=== PATIENT | female | born 1995 | race Caucasian/White ===

== ENCOUNTER → 2019-05-28 16:05 | Outpatient (BNVA) | payer OTHER, BC, MEDICAID, SELFPAY | PROVIDERS: Family Provider Physician Assistant Medical; PCP Physician Assistant Medical; Visit Provider Obstetrics & Gynecology | DX: N64.3 Galactorrhea not associated with childbirth (principal); Z30.41 Encounter for surveillance of contraceptive pills | CPT/HCPCS: 84146; 84443 ==

== ENCOUNTER → 2019-11-02 14:00 | Outpatient (BNVA) | payer MEDICAID, SELFPAY | PROVIDERS: Family Provider Physician Assistant Medical; PCP Physician Assistant Medical; Visit Provider Obstetrics & Gynecology | DX: Z32.01 Encounter for pregnancy test, result positive (principal) | CPT/HCPCS: 81025 ==

== ENCOUNTER 2019-11-20 22:59 | Emergency (ER) | payer BC, MEDICAID, SELFPAY ==
--- NOTE | 2019-11-20 23:01 | USR_ITS ---
PROCEDURE INFORMATION: Exam: US First Trimester, Transabdominal and US , Transvaginal Exam date and time: 11/21/2019 12:48 AM Age: 24 years old Clinical indication: Lmp or gestational age (in weeks): 5wk4d; Other: Spotting; Patient HX: ; Additional info: Threatened miscarriage. LMP 10/02/2019. TECHNIQUE: Imaging protocol: Real-time transabdominal obstetrical ultrasound of the maternal pelvis and a first trimester , less than 14 weeks 0 days, with image documentation. Transvaginal imaging was used for better evaluation of the fetus and adnexa. COMPARISON: No relevant prior studies available. FINDINGS: There is a 9 x 7 x 8 mm fluid collection within the uterus that may represent a very early gestational sac. No definite yolk sac visible to confirm that this is a true gestational sac. Size would suggest gestational age of approximately 5 weeks. No significant subchorionic hematoma visualized. Small amount fluid in the cervical canal, about 2 mm in thickness. Trace amount of cul-de-sac fluid. Maternal ovaries/adnexa appear essentially unremarkable. Blood flow detected in each ovary. The sonographic appearance alone is nonspecific. This may represent an early viable intrauterine , approximately five weeks gestation. If there is any further question of viability, follow up will be needed. An occult ectopic with a pseudo sac in the uterus is not yet completely excluded. Appropriate clinical follow up is needed. The urinary bladder was not completely evaluated/imaged at this time. Endovaginal scanning provided better visualization/evaluation of the suspected gestational sac and contents, as discussed above. US/US OB <= 14 weeks fetus [id number] IMPRESSION: 1. Probable early early gestational sac within the uterus. 2. See above discussion and recommendations. 3. Essentially unremarkable ovaries/adnexa. 4. Trace amount of cul-de-sac fluid. 5. Other details discussed above.
[2019-11-20 23:20] LABS: Basophils # 0.1 10^3/uL (0.0-0.1); Basophils % 0.9 %; Eosinophils # 0.5 10^3/uL (0.0-0.8); Eosinophils % 5.3 %; Hematocrit 44.3 % (37.0-47.0); Hemoglobin 13.9 g/dL (11.5-15.3); Lymphocytes # 2.4 10^3/uL (0.8-4.8); Lymphocytes % 27.8 %; Mean Corpuscular HGB Conc 31.4 g/dL (30.0-36.0); Mean Corpuscular Volume 89.3 fL (81-99); Mean Platelet Volume 10.1 fL (7.4-10.4); Monocytes # 0.6 10^3/uL (0.2-0.9); Monocytes % 7.2 %; Neutrophils # 5.13 10^3/uL (1.8-7.7); Neutrophils % 58.6 %; Nucleated Red Blood Cells % 0 %; Platelet Count 348 10^3/cmm (130-400); Red Blood Count 4.96 10^6/uL (4.1-5.3); Red Cell Distribution Width 12.9 % (12.1-15.1); White Blood Count 8.8 10^3/uL (4.0-10.0)
[2019-11-20 23:31] VITALS: BP 148/94; PULSE 105; RESP 18; TEMP 36.7; O2SAT 100; BMI 28.3
[2019-11-21 00:09] LABS: Bilirubin Urine Neg (NEGATIVE); Blood Urine Neg (Negative); Glucose Urine UA Norm (Normal); Ketones Urine Negative (Negative); Leukocyte Esterase Urine Negative (Negative); Nitrate Urine Negative (Negative); Protein Urine Neg (Negative); Urine Appearance Clear (CLEAR); Urine Color Yellow (Yellow); Urobilinogen Urine Norm (Negative); pH Urine 6 (5-7)
[2019-11-21 00:10] LABS: RBC Urine 0-4 /hpf (0-2); WBC Urine 0-4 /hpf (0-5)
[2019-11-21 00:11] LABS: Add Urine Culture? No; Bacteria Urine TRACE; Mucus Urine TRACE
--- NOTE | 2019-11-21 00:59 | W.ED.PREGNAN ---
HPI - General: Chief complaint: Vaginal Bleeding Stated complaint: 7 weeks preg/bleeding Time Seen by Provider: 11/21/19 00:56 History of Present Illness: HPI Narrative: Patient states when she wiped tonight that she had some blood on the tissue. Did have little bit discharge couple weeks ago that any problems. Otherwise and she is not have any current bleeding right now Complaint: vaginal bleeding Onset (ago): hour(s) Pain Consistency: now resolved Severity: mild Date of Last Menstrual Period: 10/02/19 Patient : Yes Number of Weeks : 4-5 OB History - Current : no complications OB History - Previous Pregnancies: no complications care: none Associated symptoms: Reports no associated symptoms; Deny abdominal pain, headache(s), nausea or vomiting Review of Systems Const: Denies: fever(s), chills or body aches Eyes: Denies: change in vision or blurry vision ENMT: Denies: throat pain or nasal congestion Card: Denies: chest pain or dyspnea on exertion Resp: Denies: dyspnea, productive cough or non-productive cough GI: Denies: abdominal pain, nausea or vomiting : Reports: vaginal bleeding Musc: Denies: extremity pain Skin/Breast: Denies: rash Neuro: Denies: headache(s) Psych: Denies: anxiety or depression Garth/Lymph: Denies: easy bruising PFSH ED PFSH: Medical History (Updated 06/01/19 @ 19:10 by Serge Nash MD) Patient denies medical problems Surgical History (Updated 06/01/19 @ 19:05 by Serge Nash MD) History of laparoscopy (05/14/16) Laparoscopic left ovarian cystectomy. Dx: Pelvic pain, Left ovarian cyst. Performed by Dr. Nash at [facility] in [place], [place]. No evidence of endometriosis seen. History of wisdom tooth extraction Hx of tonsillectomy (~2002) at age 7 Family History (Updated 06/01/19 @ 19:06 by Serge Nash MD) Mother Hypertension Grandmother Diabetes Paternal Breast cancer maternal Grandfather Heart disease maternal Family/Other Breast cancer Maternal aunt, maternal cousins Social History Smoking and tobacco status: never smoked Alcohol intake: never Female Reproductive History: Date of last menstrual period: 10/02/19 Physical Exam Const: COMMON NORMALS: no acute distress, average body habitus and patient oriented x3 HENMT: COMMON NORMALS: normocephalic HEAD & SCALP: normal to inspection and normocephalic FACE & SINUS: normal facial exam Eye: COMMON NORMALS: conjunctivae normal GENERAL EYE: appearance normal, both eyes and all related structures CONJUNCTIVA: Yes conjunctivae normal Neck/C-Spine: COMMON NORMALS: no JVD Chest: COMMONS NORMALS: normal inspection of the chest Resp: COMMON NORMALS: normal respiratory effort and clear to auscultation bilaterally AUSCULTATION: clear to auscultation bilaterally Cardio: COMMON NORMALS: no JVD, regular rate and regular rhythm RATE: regular rate RHYTHM: regular rhythm GI: COMMON NORMALS: Normal to inspection, nondistended, normoactive bowel sounds present Extremity: COMMON NORMALS: normal to inspection and full ROM Neuro: COMMON NORMALS: patient oriented x3 Procedures Perimortem Number of Weeks : 4-5 Course Vital Signs: Vital signs: Vital Signs Temperature 98.0 F 11/20/19 23:31 Pulse Rate 105 H 11/20/19 23:31 Respiratory Rate 18 11/20/19 23:31 Blood Pressure 148/94 11/20/19 23:31 Pulse Oximetry 100 11/20/19 23:31 MDM - OB/Uterine Contractions Lab Data: Labs: Lab Results 11/20/19 11/20/19 11/20/19 Range/Units 23:05 23:05 23:05 WBC 8.8 (4.0-10.0) 10^3/ uL RBC 4.96 (4.1-5.3) 10^6/u L Hgb 13.9 (11.5-15.3) g/dL Hct 44.3 (37.0-47.0) % MCV 89.3 (81-99) fL MCH 28.0 (28.0-34.0) pg MCHC 31.4 (30.0-36.0) g/dL RDW 12.9 (12.1-15.1) % Plt Count 348 (130-400) 10^3/c mm MPV 10.1 (7.4-10.4) fL Neut % (Auto) 58.6 % Lymph % (Auto) 27.8 % [place] % (Auto) 7.2 % Eos % (Auto) 5.3 % Baso % (Auto) 0.9 % Neut # (Auto) 5.13 (1.8-7.7) 10^3/u L Lymph # (Auto) 2.4 (0.8-4.8) 10^3/u L [place] # (Auto) 0.6 (0.2-0.9) 10^3/u L Eos # (Auto) 0.5 (0.0-0.8) 10^3/u L Baso # (Auto) 0.1 (0.0-0.1) 10^3/u L Nucleated RBC % (a uto) 0 % Nucleated RBCs # 0.0 /100WBC Ser , Jcarlos i-Qnt 2961.00 mIU/mL Urine Color (Yellow) Urine Appearance (CLEAR) Urine pH (5-7) Ur Specific Gravit y (1.005-1.030) Urine Protein (Negative) Urine Glucose (UA) (Normal) Urine Ketones (Negative) Urine Blood (Negative) Urine Nitrate (Negative) Urine Bilirubin (NEGATIVE) Urine Urobilinogen (Negative) mg/dL Ur Leukocyte Drea ase (Negative) Urine RBC (0-2) /hpf Urine WBC (0-5) /hpf Ur Squamous Epith Cells (0-5) Amorphous Sediment Urine Bacteria (NONE) Urine Mucus Blood Type A Positive Rho(D) Type Positive 11/20/19 Range/Units 23:35 WBC (4.0-10.0) 10^3/ uL RBC (4.1-5.3) 10^6/u L Hgb (11.5-15.3) g/dL Hct (37.0-47.0) % MCV (81-99) fL MCH (28.0-34.0) pg MCHC (30.0-36.0) g/dL RDW (12.1-15.1) % Plt Count (130-400) 10^3/c mm MPV (7.4-10.4) fL Neut % (Auto) % Lymph % (Auto) % [place] % (Auto) % Eos % (Auto) % Baso % (Auto) % Neut # (Auto) (1.8-7.7) 10^3/u L Lymph # (Auto) (0.8-4.8) 10^3/u L [place] # (Auto) (0.2-0.9) 10^3/u L Eos # (Auto) (0.0-0.8) 10^3/u L Baso # (Auto) (0.0-0.1) 10^3/u L Nucleated RBC % (a uto) % Nucleated RBCs # /100WBC Ser , Jcarlos i-Qnt mIU/mL Urine Color Yellow (Yellow) Urine Appearance Clear (CLEAR) Urine pH 6 (5-7) Ur Specific Gravit y 1.010 (1.005-1.030) Urine Protein Neg (Negative) Urine Glucose (UA) Norm (Normal) Urine Ketones Negative (Negative) Urine Blood Neg (Negative) Urine Nitrate Negative (Negative) Urine Bilirubin Neg (NEGATIVE) Urine Urobilinogen Norm (Negative) mg/dL Ur Leukocyte Drea ase Negative (Negative) Urine RBC 0-4 H (0-2) /hpf Urine WBC 0-4 H (0-5) /hpf Ur Squamous Epith Cells 10-15 H (0-5) Amorphous Sediment Not Reportable Urine Bacteria Trace (NONE) Urine Mucus Trace Blood Type Rho(D) Type Discharge Plan Discharge Prescriptions: No Action norethindrone-e.estradiol-iron [Junel FE 1.5/30 (28)] 1.5 mg-30 mcg (21)/75 mg (7) tablet 1 tab PO DAILY Qty: 28 RF: 12 Coding Level of Care Code ED Tanner Rotary Drum Continuous Process for g Benjamin
[2019-11-21 02:06] VITALS: BP 138/91; PULSE 82; RESP 18; O2SAT 97
== END 2019-11-21 02:07 | disposition home or self-care (01) ==
PROVIDERS: Emergency Medicine; Emergency Provider Nurse Practitioner Family; PCP Physician Assistant Medical
DX: N93.9 Abnormal uterine and vaginal bleeding, unspecified (principal)
CPT/HCPCS: 12345; 36415; 76801; 81001; 84702; 85025; 86900; 99282; 99283

== ENCOUNTER 2019-11-23 12:49 | Outpatient (CLI) | payer BC, MEDICAID, SELFPAY | END 2019-11-23 12:50 | disposition home or self-care (01) | LOC: LAB 12:56 | PROVIDERS: PCP Physician Assistant Medical; Visit Provider Obstetrics & Gynecology | DX: O20.9 Hemorrhage in early pregnancy, unspecified (principal) | CPT/HCPCS: 84702 ==

== ENCOUNTER 2019-11-24 18:31 | Emergency (ER) | payer BC, MEDICAID, SELFPAY ==
[2019-11-24 18:46] VITALS: BP 144/96; PULSE 96; RESP 14; TEMP 36.8; O2SAT 100; BMI 28.3
--- NOTE | 2019-11-24 19:19 | US_ITS ---
WS: [id number] ULTRASOUND EARLY TECHNIQUE: Transabdominal sonography of the pelvis was performed. Followed by transvaginal sonography to better evaluate the uterus and ovaries. CLINICAL INFORMATION: Pain Beta hCG: Unknown. COMPARISON: November 21, 2019 FINDINGS: UTERUS AND GESTATIONAL SAC Intrauterine gestations: Empty gestational sac with measurements compatible with 5 weeks 6 days. No pole or yolk sac. Re commend short interval follow-up in this very early . Subchorionic hemorrhage: Small subchorionic hemorrhage measuring 8 x 4 mm. OVARIES Right ovary: Normal. Left ovary: Normal. FREE FLUID None. US/US transvaginal [id number] IMPRESSION: 1. Gestational sac. No visualized pole in this very early . Rec ommend short interval follow-up. 2. Normal ovaries. 3. Small amount of subchorionic hemorrhage
--- NOTE | 2019-11-24 19:30 | ED_ITS ---
HPI - Female Genitourinary General: Chief complaint: Vaginal Bleeding Stated complaint: preg/bleeding Time Seen by Provider: 11/24/19 19:08 Source: patient Mode of arrival: ambulatory Limitations: no limitations History of Present Illness: HPI Narrative: Ghazala is a nice 24-year-old female who comes in complaining of vaginal bleeding and cramping. The patient states that she is currently up 5 to 6 weeks with her second . She did have an ultrasound recently that showed a 5-week with a gestational sac. She is had bleeding going on now for the past 5 days but it is become increasingly heavier. She is had intermittent lower abdominal cramping that is in the midline. She denies any vaginal discharge other than the blood. She denies any urinary symptoms. She is not described any fever, chills, nausea, any vomiting or any bowel problems. She states sometimes resting will make the bleeding slowed down but any type of activity makes it worse. Associated symptoms: Reports abdominal pain (Suprapubic, see HPI); Deny headache(s), nausea, syncope or vaginal discharge Date of Last Menstrual Period: 10/02/19 Review of Systems Const: Denies: fever(s), chills, body aches, fatigue, malaise or diaphoresis Eyes: Denies: change in vision, blurry vision, photophobia, eye discomfort, eye discharge or eye redness ENMT: Denies: throat pain, odynophagia, hoarseness, swelling of lips/tongue, ear or mastoid pain, ear discharge, change in hearing or nasal discharge Card: Denies: chest pain, palpitations, irregular heart rhythm, edema, lightheadedness, syncope, pre-syncope, dyspnea on exertion or orthopnea Resp: Denies: dyspnea, productive cough, non-productive cough, wheezing, hemoptysis or chest congestion GI: Reports: abdominal pain (Suprapubic, see HPI); Denies: nausea, vomiting, hematemesis, coffee ground emesis, heartburn, diar dago, constipation, GI cramping, hematochezia or melena : Reports: vaginal bleeding; Denies: flank pain, dysuria, urinary frequency, urinary urgency, hematuria or vaginal discharge Musc: Denies: neck pain, back pain, extremity pain, extremity swelling, joint pain, joint swelling, joint redness, joint warmth or joint stiffness Skin/Breast: Denies: rash, pruritus, erythema or skin tenderness Neuro: Denies: headache(s), numbness in extremities, weakness in extremities, sensory changes, lack of coordination, difficulty walking, dizziness, vertigo, confusion, Slurred speech present or seizure-like activity Garth/Lymph: Denies: easy bruising, easy bleeding, petechiae, purpura or enlarged lymph nodes All/Imm: Denies: urticaria, throat swelling, tongue swelling, facial swelling or acute wheezing PFSH ED PFSH: Medical History Patient denies medical problems Surgical History History of laparoscopy (05/14/16) Laparoscopic left ovarian cystectomy. Dx: Pelvic pain, Left ovarian cyst. [place]. Nash [place] [facility] [place]. No evidence of endometriosis seen. History of wisdom tooth extraction Hx of tonsillectomy (~2002) at age 7 Family History Mother Hypertension Grandmother Diabetes Paternal Breast cancer maternal Grandfather Heart disease maternal Family/Other Breast cancer Maternal aunt, maternal cousins Social History Smoking and tobacco status: never smoked Alcohol intake: never Female Reproductive History: Date of last menstrual period: 10/02/19 Physical Exam Const: COMMON NORMALS: no acute distress, patient oriented x3, no limitations, healthy appearing and well nourished GENERAL APPEARANCE: cooperative, well kempt and well developed HENMT: COMMON NORMALS: normocephalic, atraumatic, external ears normal, EAC's normal and Normal external nose present HEAD & SCALP: normal to inspection, normocephalic and atraumatic FACE & SINUS: normal facial exam and face symmetric NOSE: Normal external nose present and Normal nares present EXTERNAL EAR: Yes external ears normal EXTERNAL AUDITORY CANAL: EAC's normal MOUTH: Normal oral and palatal mucosa present, lip normal and tongue normal Eye: COMMON NORMALS: Equal, round and reactive pupils present and conjunctivae normal GENERAL EYE: appearance normal, both eyes and all related structures ALIGNMENT: Yes alignment normal PERIORBITAL: periorbital findings normal EYELID: eyelids normal CONJUNCTIVA: Yes conjunctivae normal SCLERA: sclerae normal PUPIL: Yes Equal, round and reactive pupils present Neck/C-Spine: COMMON NORMALS: full ROM, no lymphadenopathy, supple, no meningeal signs and no JVD GENERAL: Yes normal visual inspection and Yes trachea midline Chest: COMMONS NORMALS: normal inspection of the chest and normal palpation of entire chest wall Resp: COMMON NORMALS: normal respiratory effort, No retractions, No use of accessory muscles and clear to auscultation bilaterally EFFORT & INSPECTION: Yes able to speak in complete sentences and Yes symmetric chest movement AUSCULTATION: clear to auscultation bilaterally, no crackles, no rales, no rhonchi and no wheezes Cardio: COMMON NORMALS: no JVD, regular rate, regular rhythm, S1 normal heart sound present and S2 normal heart sound present RATE: regular rate RHYTHM: regular rhythm HEART SOUNDS: S1 normal heart sound present, S2 normal heart sound present, no click, no gallops, no murmurs, no rubs and abnormal split S2 GI: COMMON NORMALS: Soft to palpation and No hepatosplenomegaly present PALPATION: Yes Soft to palpation, No Tenderness to palpation present (GI), No Guarding due to palpation present (GI), No Rigid due to palpation, Yes No hepatosplenomegaly present, No Hernia present, No Palpable mass present and No Pulsatile mass present : COMMON NORMALS: Yes no CVA tenderness BLADDER/KIDNEY EXAM: Yes no CVA tenderness EXTERNAL FEMALE EXAM: No Hernia present Back/Pelvis: COMMON NORMALS: no CVA tenderness, thoracic and lumbar spine normal to inspection, no thoracic nor lumbar tenderness and thoraco-lumbar ROM normal Extremity: COMMON NORMALS: normal to inspection, full ROM, capillary refill normal, no joint enlargement, no clubbing, cyanosis or edema and no calf tenderness Neuro: COMMON NORMALS: patient oriented x3, CN's II-XII intact bilaterally, moves all extremities, no focal motor deficits and no sensory deficits noted MENINGEAL SIGNS: Yes no meningeal signs SPEECH: speech normal Psych: COMMON NORMALS: mental status grossly normal, Normal thought process present, cooperative, normal affect, speech normal and activity/motor behavior normal APPEARANCE: Yes well kempt SPEECH: Yes normal speech THOUGHT PROCESS: Normal thought process present Skin: COMMON NORMALS: no rashes or lesions noted, turgor normal, no jaundice, no petechiae and no mottling GENERAL SKIN EXAM: no rashes or lesions noted and turgor normal Course Vital Signs: Vital signs: Vital Signs Temperature 98.3 F 11/24/19 18:46 Pulse Rate 96 11/24/19 18:46 Respiratory Rate 16 11/24/19 21:53 Blood Pressure 127/82 11/24/19 21:53 Pulse Oximetry 100 11/24/19 18:46 MDM - Female MDM Narrative: Medical decision making narrative: Ghazala is a nice 24-year-old female who comes in complaining of vaginal bleeding. She believes herself to be about 5 weeks by dates. This would be her second . Ultrasound reveals what looks to be a blighted ovum and a incomplete as her cervix is dilating. The patient is aware of this and understands she will need to follow-up with Dr. Nash or Martin. I have reviewed the case with Dr. Hopkins and he agrees to see the patient in follow-up. Patient understands it is imperative that she follow-up this week and Dr. Salazar has agreed that she needs to be seen this week to ensure that she passes all of the products of conception. Lab Data: Attestation: I reviewed the patient's lab results. Labs: Lab Results 11/24/19 11/24/19 11/24/19 Range/Units 19:45 19:50 19:50 WBC 10.8 H (4.0-10.0) 10^3/ uL RBC 4.45 (4.1-5.3) 10^6/u L Hgb 12.9 (11.5-15.3) g/dL Hct 39.8 (37.0-47.0) % MCV 89.4 (81-99) fL MCH 29.0 (28.0-34.0) pg MCHC 32.4 (30.0-36.0) g/dL RDW 12.9 (12.1-15.1) % Plt Count 337 (130-400) 10^3/c mm MPV 10.1 (7.4-10.4) fL Neut % (Auto) 56.9 % Lymph % (Auto) 27.3 % [place] % (Auto) 7.9 % Eos % (Auto) 6.6 % Baso % (Auto) 1.0 % Neut # (Auto) 6.12 (1.8-7.7) 10^3/u L Lymph # (Auto) 2.9 (0.8-4.8) 10^3/u L [place] # (Auto) 0.9 (0.2-0.9) 10^3/u L Eos # (Auto) 0.7 (0.0-0.8) 10^3/u L Baso # (Auto) 0.1 (0.0-0.1) 10^3/u L Nucleated RBC % (a uto) 0 % Nucleated RBCs # 0.0 /100WBC Sodium 139 (136-145) mmol/L Potassium 3.5 (3.5-5.1) mmol/L Chloride 105 (98-107) mmol/L Carbon Dioxide 25 (22-29) mmol/L Anion Gap 12.5 (5-19) BUN 7 (6-20) mg/dL Creatinine 0.7 (0.5-0.9) mg/dL GFR Calculation 101.1 (90-130) mL/min Glucose 97 (65-115) mg/dL Calculated Osmolal ity 284 L (285-295) mOsm/k g Calcium 9.2 (8.5-10.5) mg/dL Total Bilirubin 0.2 (0.15-1.2) mg/dL AST 11 (0-32) U/L ALT 14 (0-33) U/L Alkaline Phosphata se 66 (35-105) IU/L Total Protein 6.5 L (6.6-8.7) g/dL Albumin 4.5 (3.5-5.2) g/dL Globulin 2.0 (1.3-4.6) g/dL Ser , Jcarlos i-Qnt 3582.00 mIU/mL Urine Color (Yellow) Urine Appearance (CLEAR) Urine pH (5-7) Ur Specific Gravit y (1.005-1.030) Urine Protein (Negative) Urine Glucose (UA) (Normal) Urine Ketones (Negative) Urine Blood (Negative) Urine Nitrate (Negative) Urine Bilirubin (NEGATIVE) Urine Urobilinogen (Negative) mg/dL Ur Leukocyte Drea ase (Negative) Urine RBC (0-2) /hpf Urine WBC (0-5) /hpf Ur Squamous Epith Cells (0-5) Amorphous Sediment Urine Bacteria (NONE) Blood Type A Positive Rho(D) Type Positive 11/24/19 Range/Units 20:00 WBC (4.0-10.0) 10^3/ uL RBC (4.1-5.3) 10^6/u L Hgb (11.5-15.3) g/dL Hct (37.0-47.0) % MCV (81-99) fL MCH (28.0-34.0) pg MCHC (30.0-36.0) g/dL RDW (12.1-15.1) % Plt Count (130-400) 10^3/c mm MPV (7.4-10.4) fL Neut % (Auto) % Lymph % (Auto) % [place] % (Auto) % Eos % (Auto) % Baso % (Auto) % Neut # (Auto) (1.8-7.7) 10^3/u L Lymph # (Auto) (0.8-4.8) 10^3/u L [place] # (Auto) (0.2-0.9) 10^3/u L Eos # (Auto) (0.0-0.8) 10^3/u L Baso # (Auto) (0.0-0.1) 10^3/u L Nucleated RBC % (a uto) % Nucleated RBCs # /100WBC Sodium (136-145) mmol/L Potassium (3.5-5.1) mmol/L Chloride (98-107) mmol/L Carbon Dioxide (22-29) mmol/L Anion Gap (5-19) BUN (6-20) mg/dL Creatinine (0.5-0.9) mg/dL GFR Calculation (90-130) mL/min Glucose (65-115) mg/dL Calculated Osmolal ity (285-295) mOsm/k g Calcium (8.5-10.5) mg/dL Total Bilirubin (0.15-1.2) mg/dL AST (0-32) U/L ALT (0-33) U/L Alkaline Phosphata se (35-105) IU/L Total Protein (6.6-8.7) g/dL Albumin (3.5-5.2) g/dL Globulin (1.3-4.6) g/dL Ser , Jcarlos i-Qnt mIU/mL Urine Color Yellow (Yellow) Urine Appearance Clear (CLEAR) Urine pH 6 (5-7) Ur Specific Gravit y 1.015 (1.005-1.030) Urine Protein Neg (Negative) Urine Glucose (UA) Norm (Normal) Urine Ketones Negative (Negative) Urine Blood 3+ H (Negative) Urine Nitrate Negative (Negative) Urine Bilirubin Neg (NEGATIVE) Urine Urobilinogen Norm (Negative) mg/dL Ur Leukocyte Drea ase Negative (Negative) Urine RBC 25-40 H (0-2) /hpf Urine WBC None (0-5) /hpf Ur Squamous Epith Cells 0-4 H (0-5) Amorphous Sediment Not Reportable Urine Bacteria Trace (NONE) Blood Type Rho(D) Type Imaging Data: US: My impression: Ultrasound pelvis, technologist interpretation -empty sac present measuring 5 weeks and 1 day. No pole or yolk sac seen. Appears as though it is a blighted ovum. Ovaries normal. Cervix is dilating open. No free flui d. Discharge Plan Discharge Patient Disposition: Home Clinical Impression: Incomplete UTI (urinary tract infection) Qualifiers: Urinary tract infection type: site unspecified Hematuria presence: with hematuria Qualified Code(s): N39.0 - Urinary tract infection, site not specified Condition: Stable Prescriptions: New cefdinir 300 mg capsule 300 mg PO Q12H 10 Days Qty: 20 RF: 0 No Action 28-800 mg-mcg Tablet 1 tab PO DAILY RF: 0 Discharge Orders: Discharge Order (Routine); Ordered 11/24/19 Ordered By: Gia Carias Referrals: Farshad Klein [Primary Care Provider] - 1-3 days Discharge Diet: Advance as tolerated Discharge Activity: Increase activity as tolerated Patient Instructions: Spontaneous Miscarriage (ED), Urinary Tract Infection in Women (ED) Activity Restrictions/Additional Instructions: Please return to the ER immediately for any of the signs or symptoms listed on your discharge instruction sheets, worsening/changing of your symptoms, you are not getting better as quickly as expected, or for ANY other cause or concerns. If your bleeding becomes worse, you are dizzy or lightheaded or pass out or nearly pass out please return to the ER immediately. I have reviewed your case with Dr. Salazar who states that he will see you in the office this week for recheck. Discharge Date/Time: 11/24/19 21:54 Coding Level of Care Code ED Pet Groomer for Chg Fwd Exam Comprehensive
[2019-11-24] MEDS: sodium chloride 0.9% 1,000 ML 999 ML IV (19:38)
[2019-11-24 20:01] LABS: Basophils # 0.1 10^3/uL (0.0-0.1); Eosinophils # 0.7 10^3/uL (0.0-0.8); Eosinophils % 6.6 %; Hematocrit 39.8 % (37.0-47.0); Hemoglobin 12.9 g/dL (11.5-15.3); Lymphocytes # 2.9 10^3/uL (0.8-4.8); Lymphocytes % 27.3 %; Mean Corpuscular HGB Conc 32.4 g/dL (30.0-36.0); Mean Corpuscular Volume 89.4 fL (81-99); Mean Platelet Volume 10.1 fL (7.4-10.4); Monocytes # 0.9 10^3/uL (0.2-0.9); Monocytes % 7.9 %; Neutrophils # 6.12 10^3/uL (1.8-7.7); Neutrophils % 56.9 %; Nucleated Red Blood Cells % 0 %; Platelet Count 337 10^3/cmm (130-400); Red Blood Count 4.45 10^6/uL (4.1-5.3); Red Cell Distribution Width 12.9 % (12.1-15.1); White Blood Count 10.8 10^3/uL (4.0-10.0)
[2019-11-24 20:35] LABS: Alanine Aminotransferase 14 U/L (0-33); Albumin Level 4.5 g/dL (3.5-5.2); Alkaline Phosphatase 66 IU/L (35-105); Anion Gap 12.5 (5-19); Aspartate Amino Transferase 11 U/L (0-32); Blood Urea Nitrogen 7 mg/dL (6-20); Calcium 9.2 mg/dL (8.5-10.5); Carbon Dioxide 25 mmol/L (22-29); Chloride 105 mmol/L (98-107); Glomerular Filtration Rate 101.1 mL/min (90-130); Glucose 97 mg/dL (65-115); Osmolality Calculated 284 mOsm/kg (285-295); Potassium 3.5 mmol/L (3.5-5.1); Sodium 139 mmol/L (136-145); Total Bilirubin 0.2 mg/dL (0.15-1.2); Total Protein 6.5 g/dL (6.6-8.7)
[2019-11-24 21:06] LABS: Urine Appearance Clear (CLEAR); Urine Color Yellow (Yellow)
[2019-11-24 21:07] LABS: Bilirubin Urine Neg (NEGATIVE); Blood Urine 3+ (Negative); Glucose Urine UA Norm (Normal); Ketones Urine Negative (Negative); Leukocyte Esterase Urine Negative (Negative); Nitrate Urine Negative (Negative); Protein Urine Neg (Negative); Specific Gravity, Urine 1.015 (1.005-1.030); Urobilinogen Urine Norm (Negative); pH Urine 6 (5-7)
[2019-11-24 21:08] LABS: Add Urine Culture? Yes; Bacteria Urine TRACE; RBC Urine 25-40 /hpf (0-2); Squamous Epithelial Cell Urine 0-4 (0-5)
[2019-11-24 21:53] VITALS: BP 127/82; RESP 16
--- NOTE | 2019-11-25 12:37 | DCPLANNER ---
supplier quality engineering manager had message to schedule a follow up appointment for patient with [facility]. Patient has a follow up appointment scheduled for Saturday, November 30, 2019 at 2:00 with Dagmar Davidson. Clinic will call patient with appointment information.
--- NOTE | 2020-01-06 07:52 | DCPLANNER ---
Patent had a follow up appointment scheduled for 11.30.19 with [facility] - patient did attend the appointment.
== END 2019-11-24 21:54 | disposition home or self-care (01) ==
PROVIDERS: Emergency Provider Emergency Medicine; PCP Physician Assistant Medical
DX: O03.4 Incomplete spontaneous abortion without complication (principal); O23.41 Unspecified infection of urinary tract in pregnancy, first trimester; Z3A.01 Less than 8 weeks gestation of pregnancy
CPT/HCPCS: 12345; 36415; 76830; 80053; 81001; 84702; 85025; 86900; 87086; 87210; 87491; 87591; 96360; 99283; J7030

== ENCOUNTER → 2019-11-26 08:08 | Outpatient (BNVA) | payer BC, MEDICAID, SELFPAY | PROVIDERS: PCP Physician Assistant Medical; Visit Provider Obstetrics & Gynecology | DX: O03.4 Incomplete spontaneous abortion without complication (principal) | CPT/HCPCS: 76817; 84702 ==

== ENCOUNTER → 2019-11-29 09:02 | Outpatient (BNVA) | payer BC, MEDICAID, SELFPAY | PROVIDERS: PCP Physician Assistant Medical; Visit Provider Obstetrics & Gynecology | DX: O20.0 Threatened abortion (principal) | CPT/HCPCS: 84702 ==

== ENCOUNTER → 2019-12-01 15:07 | Outpatient (BNVA) | payer BC, MEDICAID, SELFPAY | PROVIDERS: PCP Physician Assistant Medical; Visit Provider Obstetrics & Gynecology | DX: O03.4 Incomplete spontaneous abortion without complication (principal); R31.9 Hematuria, unspecified; N39.0 Urinary tract infection, site not specified | CPT/HCPCS: 76817; 80048; 81000; 85025; 86850; 86900 ==

== ENCOUNTER 2019-12-02 05:46 | Day surgery (SDC) | payer BC, MEDICAID, SELFPAY ==
[2019-12-01 08:32] VITALS: BMI 28.3
[2019-12-02] VITALS (7 sets, daily range): BP systolic 131–153; BP diastolic 83–96; PULSE 90–123; RESP 15–18; TEMP 36.2–37.3; O2SAT 97–100
[2019-12-02] MEDS: scopolamine 1.5 Patch 1 PATCH TRANSDERMA (06:32)
[2019-12-02] MEDS: sodium chloride 0.9% 1,000 ML 30 ML IV (06:40)
--- NOTE | 2019-12-02 06:42 | P.ANESASSM_ITS ---
Pre-Anesthetic Assessment Pre-Anesthetic Assessment: Height/Weight: Height 1.55 m Weight 68.039 kg Temp Pulse Resp BP Pulse Ox 98.3 F 90 18 131/88 99 12/02/19 06:00 12/02/19 06:00 12/02/19 06:00 12/02/19 06:00 12/02/19 06:00 Preop Diagnosis: Missed AB Proposed Procedure: Operation Date: 12/02/19 07:00 Proposed Procedures p Dilation And Curettage (D&C) 10212 O02.1(Not Applicable) - Prabhakar Salazar MD Familial anesthetic complications: None Was Beta Malcolm taken within 24 hour s: N/A Last intake: Intake Last Liquid Date 12/02/19 Last Liquid Time 00:00 Last Solid Date 12/02/19 Last Solid Time 00:00 Social: Social History: No alcohol and No tobacco Exam: Pre-Anes Outpt Exam: alert, oriented x 3, clear to auscultation bilaterally and regular rate & rhythm Airway: Cervical ROM: WNL MP: 2 Dentition: Full Anesthetic Plan: ASA status: 1 Anesthesia: MAC Risk of > 500 ml blood loss (7ml/kg in children): No Meds/Allergies Current Medications: Current Medications Generic Name Dose Route Start Last Admin Trade Name Freq PRN Reason Stop Dose Admin Sodium Chloride 1,000 mls @ 30 ml s/hr 12/02/19 06:15 12/02/19 06:40 Sodium Chloride 0.9% IV 30 mls/hr .Q24H ALYSSA Administration PFSH Anesthesia PFSH: Medical History (Updated 12/02/19 @ 00:00 by ) Patient denies medical problems Surgical History History of laparoscopy (05/14/16) Laparoscopic left ovarian cystectomy. Dx: Pelvic pain, Left ovarian cyst. Performed by Dr. Nash at [facility] in [place], [place]. No evidence of endometriosis seen. History of wisdom tooth extraction Hx of tonsillectomy (~2002) at age 7 Family History Mother Hypertension Grandmother Diabetes Paternal Breast cancer maternal Grandfather Heart disease maternal Family/Other Breast cancer Maternal aunt, maternal cousins Social History Smoking and tobacco status: never smoked Alcohol intake: never Substance/Drug Use: never Female Reproductive History: Date of last menstrual period: 10/02/19 Data Anesthesia Cardiac Studies: No Data to Display
[2019-12-02 07:03] LABS: Blood Urea Nitrogen 7 mg/dL (6-20); Calcium 8.8 mg/dL (8.5-10.5); Carbon Dioxide 25 mmol/L (22-29); Chloride 107 mmol/L (98-107); Glomerular Filtration Rate 120.8 mL/min (90-130); Glucose 105 mg/dL (65-115); Osmolality Calculated 286 mOsm/kg (285-295); Sodium 140 mmol/L (136-145)
--- NOTE | 2019-12-02 07:05 | W.PM.OPSUD ---
Surgery/Procedure H&P Update DATE OF PROCEDURE: December 02, 2019 DATE H&P PERFORMED: 12/01/19 H&P UPDATE INFORMATION: I have reviewed H&P completed within last 30 days, I have examined patient prior to procedure and No changes to prior documentation PREOP DIAGNOSIS: Missed AB PLANNED PROCEDURE: Operation Date: 12/02/19 07:00 Proposed Procedures p Dilation And Curettage (D&C) 70410 O02.1(Not Applicable) - Prabhakar Salazar MD
--- NOTE | 2019-12-02 08:00 | PM.OP ---
Operative Report Date of procedure: December 02, 2019 Pre-op Diagnosis: Missed AB Post-op diagnosis: same Procedure Done: Suction dilation and curettage Specimens removed/disposition: Product of conception Surgeon: Prabhakar Salazar Anesthesia: General Estimated blood loss (mL): 10 IV fluids (mL): 400 Complications: None Findings: Vaginal bleeding Product of Conception Condition: stable Disposition: PACU Brief History: 34-year-old female with missed AB Procedure: After informed consent, the patient was taken to the Operating Room where general anesthesia was administered. The patient was examined under anesthesia and found to have a normal uterus with normal adnexa. She was placed in the dorsal lithotomy position and prepped and draped in sterile fashion. A sterile weighted speculum was placed in the patient?s vagina. A single-tooth tenaculum was then applied to the cervix. The uterus was then gently sounded to 9 cm and a suction curette was advanced gently to the uterine fundus and product of conception emptied. A sharp curettage was then performed until a gritty texture was noted. There was minimal bleeding noted and the tenaculum was removed with good hemostasis noted. The patient tolerated the procedure well. The patient was taken to the recovery area in stable condition.
--- NOTE | 2019-12-02 12:27 | ANE.PACU2 ---
Inpatient post-anesthesia follow up: Airway intact: Yes Vital signs: Temperature 98.0 F Pulse Rate 104 Respiratory Rate 18 Blood Pressure 132/86 Pulse Oximetry 99 Oxygen Delivery Me thod Room Air Oxygen Flow Rate 8 Fraction of Inspir ed Oxygen Hydration adequate: Yes Nausea and vomiting: No Pain level: 1 Mental status: Baseline
== END 2019-12-02 09:18 | disposition home or self-care (01) ==
PROVIDERS: PCP Physician Assistant Medical; Visit Provider Obstetrics & Gynecology
PROC: (CPT 58120; principal; 2019-12-02 07:00)
DX: O02.1 Missed abortion (principal)
CPT/HCPCS: 59820; 12345; 36415; 80048; 88305; J0131; J0330; J0690; J1100; J1885; J2405; J2704; J2765; J3010; J3490; J7030

== ENCOUNTER → 2020-01-28 16:21 | Outpatient (BNVA) | payer BC, MEDICAID, SELFPAY | PROVIDERS: PCP Physician Assistant Medical; Visit Provider Obstetrics & Gynecology | DX: Z32.01 Encounter for pregnancy test, result positive (principal) | CPT/HCPCS: 81025 ==

== ENCOUNTER → 2020-03-13 14:39 | Outpatient (BNVA) | payer BC, MEDICAID, SELFPAY | PROVIDERS: PCP Physician Assistant Medical; Visit Provider Obstetrics & Gynecology | DX: O09.899 Supervision of other high risk pregnancies, unspecified trimester (principal); Z3A.00 Weeks of gestation of pregnancy not specified | CPT/HCPCS: 80307; 84315; 85027; 86592; 86762; 86803; 86850; 86900; 87086; 87340; 87806 ==

== ENCOUNTER → 2020-03-27 10:14 | Outpatient (BNVA) | payer BC, MEDICAID, SELFPAY | PROVIDERS: PCP Physician Assistant Medical; Visit Provider Obstetrics & Gynecology | DX: O09.891 Supervision of other high risk pregnancies, first trimester (principal); Z3A.00 Weeks of gestation of pregnancy not specified | CPT/HCPCS: 84315; 87491; 87591 ==

== ENCOUNTER 2020-04-02 15:37 | Outpatient (CLI) | payer BC, MEDICAID, SELFPAY ==
[2020-04-02 17:09] LABS: Total Volume, Urine 2750 mL; Urine Total Protein 24 Hour 4.8 mg/dL (0-150)
== END 2020-04-02 15:38 | disposition home or self-care (01) ==
LOC: LAB 15:39
PROVIDERS: PCP Physician Assistant Medical; Visit Provider Obstetrics & Gynecology
DX: O09.291 Supervision of pregnancy with other poor reproductive or obstetric history, first trimester (principal); Z3A.00 Weeks of gestation of pregnancy not specified
CPT/HCPCS: 84156

== ENCOUNTER → 2020-05-22 09:38 | Outpatient (BNVA) | payer BC, MEDICAID, SELFPAY | PROVIDERS: PCP Physician Assistant Medical; Visit Provider Obstetrics & Gynecology | DX: Z36.89 Encounter for other specified antenatal screening (principal) | CPT/HCPCS: 76805 ==

== ENCOUNTER → 2020-07-17 14:05 | Outpatient (BNVA) | payer BC, MEDICAID, SELFPAY | PROVIDERS: PCP Physician Assistant Medical; Visit Provider Obstetrics & Gynecology | DX: O09.892 Supervision of other high risk pregnancies, second trimester (principal) | CPT/HCPCS: 82950; 84315; 85027 ==

== ENCOUNTER 2020-09-01 00:10 | Outpatient (CLI) | payer BC, MEDICAID, SELFPAY ==
[2020-09-01] VITALS (9 sets, daily range): BP systolic 102–139; BP diastolic 56–89; PULSE 84–107; TEMP 37.4; BMI 33.4
[2020-09-01 01:18] LABS: Actim Prom Negative
[2020-09-01 01:20] LABS: Add Urine Microscopic? YES; Bilirubin Urine Neg (Negative); Blood Urine Neg (Negative); Glucose Urine UA Norm (Normal); Ketones Urine Negative (Negative); Leukocyte Esterase Urine Trace (Negative); Nitrate Urine Negative (Negative); Protein Urine Neg (Negative); Urine Appearance Clear (CLEAR); Urine Color Yellow (Yellow); Urobilinogen Urine Norm (Negative); pH Urine 7 (5-7)
[2020-09-01 01:21] LABS: Add Urine Culture? No; Bacteria Urine TRACE /hpf; RBC Urine 0-4 /hpf (0-2); Squamous Epithelial Cell Urine 0-4 /hpf (0-5); WBC Urine 0-4 /hpf (0-5)
[2020-09-01] MEDS: lactated ringers 1,000 ML 999 ML IV (02:05)
[2020-09-01] MEDS: cephALEXin 500 mg Capsule PO (02:05)
== END 2020-09-01 03:20 | disposition home or self-care (01) ==
LOC: OPOB 00:16 → OBGYN 01:41
PROVIDERS: PCP Physician Assistant Medical; Visit Provider Obstetrics & Gynecology
DX: O26.899 Other specified pregnancy related conditions, unspecified trimester (principal); Z3A.00 Weeks of gestation of pregnancy not specified; R10.9 Unspecified abdominal pain
CPT/HCPCS: 81001; 84112; 87086

== ENCOUNTER 2020-09-04 20:24 | Outpatient (CLI) | payer BC, MEDICAID, SELFPAY ==
[2020-09-04] VITALS (25 sets, daily range): BP systolic 114–139; BP diastolic 61–78; PULSE 89–122; TEMP 35.9–36.8; O2SAT 96–100; BMI 33.6
[2020-09-04] MEDS: lactated ringers 1,000 ML 999 ML (21:28)
== END 2020-09-04 23:37 | disposition home or self-care (01) ==
LOC: OPOB 20:26 → OBGYN 20:28
PROVIDERS: PCP Physician Assistant Medical; Visit Provider Obstetrics & Gynecology
DX: O26.899 Other specified pregnancy related conditions, unspecified trimester (principal); Z3A.00 Weeks of gestation of pregnancy not specified; R10.9 Unspecified abdominal pain
CPT/HCPCS: 59025; 83986; 99211

== ENCOUNTER 2020-09-07 10:00 | Outpatient (CLI) | payer BC, MEDICAID, SELFPAY ==
--- NOTE | 2020-09-07 09:47 | ANES.PREANE2 ---
Pre-Anesthetic Assessment Pre-Anesthetic Assessment: Height/Weight: Height 1.55 m Preop Diagnosis: IUP Proposed Procedure: epidural Familial anesthetic complications: Epidural was very difficult to place first time, required replacing by same anesthesia provider. And still did not work appropriate. Apparent wet tap which required blood patch by anesthesiologist, but this did not help her headache. The doctor told her this failed because she had been poked all up and down and so he wasn't sure where the leak was coming from. Social: Social History: No alcohol and No tobacco Exam: Pre-Anes Outpt Exam: alert, oriented x 3, clear to auscultation bilaterally and regular rate & rhythm Airway: Cervical ROM: WNL MP: 3 Dentition: Full Anesthetic Plan: ASA status: 2 Anesthesia: Regional (specify below) (epidural) Risk of > 500 ml blood loss (7ml/kg in children): No PFSH Anesthesia PFSH: Medical History Blood type A+ No pertinent past medical history neghx: htn,dm,thyroid,dvt/pe,herpes --denies partner with herpes Surgical History History of laparoscopy (05/14/16) Laparoscopic left ovarian cystectomy. Dx: Pelvic pain, Left ovarian cyst. Performed by Dr. Nash at [facility] in [place], [place]. No evidence of endometriosis seen. History of wisdom tooth extraction Hx of dilation and curettage (~11/2019) Hx of tonsillectomy (~2002) at age 7 Family History Mother Hypertension Grandmother Diabetes Paternal Breast cancer MGGM--- dx age unknown Grandfather Heart disease maternal Family/Other Breast cancer Maternal aunt-- dx age 50's, maternal cousins--- dx age 50's Denies family history of Ovarian cancer Bleeding disorder Uterine cancer Thyroid disease Stroke Social History (Updated 09/07/20 @ 08:01 by Serge Nash MD) Smoking and tobacco status: never smoked Alcohol intake: never Substance/Drug Use: never Female Reproductive History: Date of last menstrual period: 10/02/19 Data Anesthesia Cardiac Studies: No Data to Display
== END 2020-09-07 12:00 | disposition home or self-care (01) ==
LOC: LAB 10-09 14:27
PROVIDERS: PCP Physician Assistant Medical; Visit Provider Obstetrics & Gynecology
DX: O09.893 Supervision of other high risk pregnancies, third trimester (principal)
CPT/HCPCS: 84315; 87081

== ENCOUNTER 2020-09-19 18:40 | Outpatient (CLI) | payer BC, MEDICAID, SELFPAY ==
[2020-09-19 19:10] VITALS: BP 135/78; PULSE 100; RESP 15; TEMP 37.2; BMI 34.9
[2020-09-19 19:30] VITALS: BP 123/73; PULSE 99
[2020-09-19 19:43] VITALS: BP 123/73; PULSE 99; RESP 15; TEMP 37.2
[2020-09-19 22:04] LABS: Nitrazine Paper, PH Negative
== END 2020-09-19 19:43 | disposition home or self-care (01) ==
LOC: OPOB 18:45 → OBGYN 18:50
PROVIDERS: Obstetrics & Gynecology; PCP Physician Assistant Medical; Visit Provider Family Medicine
DX: O36.8190 Decreased fetal movements, unspecified trimester, not applicable or unspecified (principal); N89.8 Other specified noninflammatory disorders of vagina; Z3A.00 Weeks of gestation of pregnancy not specified
CPT/HCPCS: 59025; 83986; 99211

== ENCOUNTER 2020-09-25 21:55 | Inpatient (IN) | payer BC, MEDICAID, SELFPAY ==
[2020-09-25] VITALS (63 sets, daily range): BP systolic 65–165; BP diastolic 35–101; PULSE 60–120; RESP 17; TEMP 37.1; O2SAT 92–100; BMI 33.8
[2020-09-25 19:17] LABS: Nitrazine Paper, PH Negative
[2020-09-25 20:10] LABS: Urine Creatinine 159 mg/dL (28-217)
[2020-09-25 20:12] LABS: UPRO/UCREAT Ratio 0.16 mg/mg CR; Urine Protein Random 25 mg/dL
[2020-09-25] MEDS: labetalol 5 mg/mL SDV 20mL 20 MG IVP (21:03)
[2020-09-25] MEDS: lactated ringers 1,000 ML 999 ML IV ×2 (21:05→23:06)
[2020-09-25 21:22] LABS: Basophils # 0.1 10^3/uL (0.0-0.1); Basophils % 0.5 %; Eosinophils # 0.2 10^3/uL (0.0-0.8); Eosinophils % 1.4 %; Hematocrit 38.1 % (37.0-47.0); Hemoglobin 12.3 g/dL (11.5-15.3); Lymphocytes # 2.5 10^3/uL (0.8-4.8); Lymphocytes % 20.1 %; Mean Corpuscular HGB Conc 32.3 g/dL (30.0-36.0); Mean Corpuscular Hemoglobin 27.1 pg (28.0-34.0); Mean Corpuscular Volume 83.9 fL (81-99); Monocytes # 0.9 10^3/uL (0.2-0.9); Monocytes % 7.1 %; Neutrophils # 8.61 10^3/uL (1.8-7.7); Neutrophils % 70.2 %; Nucleated Red Blood Cells % 0 %; Platelet Count 236 10^3/cmm (130-400); Red Blood Count 4.54 10^6/uL (4.1-5.3); Red Cell Distribution Width 13.6 % (12.1-15.1); White Blood Count 12.3 10^3/uL (4.0-10.0)
[2020-09-25 21:44] LABS: Bilirubin Urine Neg (Negative); Blood Urine Neg (Negative); Glucose Urine UA Norm (Normal); Ketones Urine Negative (Negative); Nitrate Urine Negative (Negative); Protein Urine Neg (Negative); Urine Appearance Hazy (CLEAR); Urine Color Yellow (Yellow); Urobilinogen Urine Norm (Negative); pH Urine 6 (5-7)
[2020-09-25 21:45] LABS: Add Urine Microscopic? YES; Leukocyte Esterase Urine Negative (Negative)
[2020-09-25 21:47] LABS: Bacteria Urine 2+ /hpf; Mucus Urine 2+ /hpf; Squamous Epithelial Cell Urine 0-4 /hpf (0-5); Transitional Epi Cells Urine 0-4 /hpf
[2020-09-25 21:48] LABS: Add Urine Culture? No
[2020-09-25 21:57] LABS: Alanine Aminotransferase 9 U/L (0-33); Alkaline Phosphatase 184 IU/L (35-105); Anion Gap 16.9 (5-19); Aspartate Amino Transferase 14 U/L (0-32); Blood Urea Nitrogen 4 mg/dL (6-20); Calcium 9.2 mg/dL (8.5-10.5); Carbon Dioxide 19 mmol/L (22-29); Chloride 105 mmol/L (98-107); Globulin 2.6 g/dL (1.3-4.6); Glomerular Filtration Rate 191.5 mL/min (90-130); Glucose 88 mg/dL (65-115); Osmolality Calculated 280 mOsm/kg (285-295); Potassium 3.9 mmol/L (3.5-5.1); Sodium 137 mmol/L (136-145); Total Bilirubin 0.3 mg/dL (0.15-1.2); Total Protein 6.6 g/dL (6.6-8.7); Uric Acid 4.9 mg/dL (2.4-5.7)
[2020-09-25] MEDS: dextrose 5%-lactated ringers 1,000 ML 125 ML IV (22:43)
--- NOTE | 2020-09-25 22:46 | ANES.PROC ---
Anesthesia Procedures Procedure/Date: 09/25/20 Procedure Narrative: labor epidural Epidural: Time Out Performed: Yes Consents Signed: Procedure Consent Consent: from patient Lumbar Level: L3-L4 Epidural position: sitting Epidural procedure: sterile prep of area, 1% lidocaine to numb the area (5ml), 18 g needle, negative for paresthesia passed, test dose given (3ml), 1.5% xylocaine 1:200k epi (3ml), 0.2% Ropivacaine bolus ml (5ml), placed PCEA, no systemic response, sterile dressing applied, L.U.D. no apparent complications and 0.2% Ropiavacaine @ mls/hr (12) Additional Comments: lot [id number]
[2020-09-25] MEDS: ePHEDrine 50 mg/mL Inj 10 MG IVP ×2 (23:05→23:15)
[2020-09-26] VITALS (72 sets, daily range): BP systolic 100–144; BP diastolic 55–90; PULSE 80–116; RESP 15–16; TEMP 35.8–36.8; O2SAT 98
[2020-09-26] MEDS: miSOPROStol 100 mcg tablet 25 MCG VAGINAL ×2 (04:05)
--- NOTE | 2020-09-26 08:39 | P.HPUD_ITS ---
Labor & Delivery H&P Update Date of Procedure: September 26, 2020 Date H&P Performed: 09/25/20 H&P update information: I have reviewed H&P completed within last 30 days, I have examined patient prior to procedure, No changes to prior documentation and H&P is in [facility] EMR on date indicated Admission Diagnosis: Preop diagnosis: IUP
[2020-09-26] MEDS: dextrose 5%-lactated ringers 1,000 ML 125 ML IV (08:50)
[2020-09-26] MEDS: oxytocin 30 UNIT/500 ML BAG IV (08:55)
--- NOTE | 2020-09-26 13:21 | P.PCNOB_ITS ---
Delivery Note: Date of delivery: September 26, 2020 - PRE-DELIVERY DIAGNOSIS: 25-year-old 3 para 1-0-1-1 at 38 weeks and 4 days gestation Induction of labor for gestational hypertension GBS negative POST-DELIVERY DIAGNOSIS: Vaginal delivery on 09/26/2020 Gestational hypertension PROCEDURE: Vaginal delivery on 09/26/2020 ANESTHESIA: Epidural anesthesia DELIVERING PHYSICIAN: Michael Benjamin FACOG PRE-DELIVERY COURSE: Ms. Mg is a 25-year-old 3 para 1-0-1-1 at 38 weeks and 3 days presented to labor and delivery on 09/25/2020 at about 6:30 PM with reports of contractions every 2 to 5 minutes of her strong. Her history was significant for history of preeclampsia and she was after taking aspirin for prophylaxis. She had been seen earlier that day in the office and was noted to have a single elevated blood pressure however had no other symptoms and proteinuria was negative. When she presented to labor and delivery her cervix had not made much change and she was 2 to 3 cm, 30% and -3 station, cephalic with a category 1 tracing and contractions every 2 to 4 minutes that were strong. Her in itial blood pressure was elevated and she had periodic elevations during her 4- hour observation in the 140s over 90s. Preeclamptic panel was done and labs were within normal limits with the protein creatinine ratio that was not in the preeclamptic range. Given her elevated blood pressures she met criteria for gestational hypertension and given that she was over 37 weeks decision was made to induce her. She was also thought to be in early labor as she was having contractions every 2 to 3 minutes that were painful. Once decision was made to keep patient she desired an epidural and this was placed and once the epidural was completed her contractions spaced out to every 5-8 minutes. She did receive 1 dose of labetalol for consistent blood pressures in the severe range which was thought to be because of pain. After total of 6 to 7 hours from initial admission she made no further cervical change and decision was made to start induction with Cytotec. For Cytotec was placed at midnight and the second 1 at 4 AM and with this she made some cervical change to 5 to 6 cm, 40% effaced and - 3 station. Artificial rupture of membranes was performed at 8:20 AM on 09/26/2020 with clear fluids at which time she was noted to be 5 to 6 cm 40% effaced and -3 station. She started to make cervical change after this and was 8 cm at 10:54 AM and fully dilated at 11:30 AM. Since induction started she did not have any blood pressures in the severe range and did not require any further IV blood pressure medication. tracing was category 1 and she was +2 station and set up in lithotomy position ready to push. DELIVERY NOTE: She was set up in lithotomy position and was pushing effectively. She was noted to be +3 station and continued pushing well. The head delivered in JACOB position, nuchal cord x1 was present but was unable to be reduced. The shoulders and rest of the body followed with her next push and delivered through the cords without any difficulty. The baby's mouth and nose were suctioned and the baby was placed on the mother's belly. Once cord pulsations stopped the cord was clamped and cut. The placenta delivered spontaneously intact with membranes and was discarded. The fundus was noted to be firm and well contracted. The vagina and cervix were inspected and no cervical or sulcal lacerations were noted. She had a first-degree vaginal laceration at about 5:00 location which was repaired with 3-0 Vicryl on an SH in a continuous interlocking fashion. Good hemostasis and reapproximation was obtained. Baby girlIfeoma born at 11:59 AM on 09/26/2020 with 8/9, weighing 6 pounds 10 ounces, 3010 g, 19 inches long. Placenta was delivered spontaneously intact with membranes at 12:02 PM. Cotyledons were intact , centrally inserted umbilical cord with 3 vessels noted. Estimated blood loss 200 mL. Complications-none, both baby and mother were left to recover in a stable condition This documentation was created by Index shear operator automatic software (known for inherent shear operator automatic error). Every effort was made to assure accuracy of shear operator automatic. Any obvious errors or omissions should be clarified with the author of the document. Coding Level of Care Code Acute Roof Truss Detailer for Chg Fwd History History History 3 Term 2 Miscarriages/Ectopic 1 0 Living Children 2 Other History: 3, Para 2011 x 2 Blighted ovum x 1 1--->11/22/2017, Male, (Joey), 6 lbs. 1/2 oz. (2740 g), 37-2/7 weeks. Epidural. Vaginal delivery. Delivered by Dr. Nash at [facility] in [place], [place]. Complicated by: Mild preeclampsia with induction at 37 weeks. 2--->11/2019- blighted ovum. Treated by D&C. 3---> 09/26/2020, female,(Ifeoma), weighing 6 pounds 10 ounces(3010 g) at 38 weeks and 3 days, epidural, vaginal delivery, induction of labor for gestational hypertension delivered by Dr. Farley at [facility]. First-degree vaginal tear.
[2020-09-26] MEDS: benzocaine-menthol 78 gm Canister 1 SPRAY TOPICAL (15:17)
[2020-09-26] MEDS: lanolin oint 7 gm 1 APPLIC TOPICAL (15:17)
[2020-09-26] MEDS: ibuprofen 800 mg tablet PO ×2 (15:18→20:33)
--- NOTE | 2020-09-26 15:22 | PC.NURSE ---
pt up to bathroom without difficulty. void 600mL. milton care by pt. gown/pad changed. complete bed linen change. pt back into bed no assistance needed.
[2020-09-26] MEDS: docusate sodium 100 mg Capsule PO (18:05)
[2020-09-27] VITALS (7 sets, daily range): BP systolic 99–129; BP diastolic 55–82; PULSE 82–91; RESP 16–18; TEMP 35.9–36.7
[2020-09-27 01:46] LABS: Hematocrit 31.7 % (37.0-47.0); Hemoglobin 10.3 g/dL (11.5-15.3); Mean Corpuscular HGB Conc 32.5 g/dL (30.0-36.0); Mean Corpuscular Hemoglobin 27.2 pg (28.0-34.0); Mean Corpuscular Volume 83.6 fL (81-99); Mean Platelet Volume 10.5 fL (7.4-10.4); Platelet Count 185 10^3/cmm (130-400); Red Blood Count 3.79 10^6/uL (4.1-5.3); Red Cell Distribution Width 13.7 % (12.1-15.1); White Blood Count 11.3 10^3/uL (4.0-10.0)
[2020-09-27] MEDS: HYDROcodone-acetaminophen 5-325 mg Tablet 1 TAB PO (06:22)
--- NOTE | 2020-09-27 07:09 | PM.OBGYDC ---
Discharge Providers ACADEMIC DEAN Date of Admission: 09/25/20 21:55 Date of Discharge: 09/27/20 Attending Provider at Admission: Michael Barbour MD Attending Provider at Discharge: Michael Barbour MD Primary Care Provider: PRE-DELIVERY DIAGNOSIS: 25-year-old 3 para 1-0-1-1 at 38 weeks and 4 days gestation Induction of labor for gestational hypertension GBS negative POST-DELIVERY DIAGNOSIS: Vaginal delivery on 09/26/2020 Gestational hypertension PROCEDURE: Vaginal delivery on 09/26/2020 ANESTHESIA: Epidural anesthesia DELIVERING PHYSICIAN: Michael Benjamin FACOG PRE-DELIVERY COURSE: Ms. Mg is a 25-year-old 3 para 1-0-1-1 at 38 weeks and 3 days presented to labor and delivery on 09/25/2020 at about 6:30 PM with reports of contractions every 2 to 5 minutes of her strong. Her history was significant for history of preeclampsia and she was after taking aspirin for prophylaxis. She had been seen earlier that day in the office and was noted to have a single elevated blood pressure however had no other symptoms and proteinuria was negative. When she presented to labor and delivery her cervix had not made much change and she was 2 to 3 cm, 30% and -3 station, cephalic with a category 1 tracing and contractions every 2 to 4 minutes that were strong. Her initial blood pressure was elevated and she had periodic elevations during her 4-hour observation in the 140s over 90s. Preeclamptic panel was done and labs were within normal limits with the protein creatinine ratio that was not in the preeclamptic range. Given her elevated blood pressures she met criteria for gestational hypertension and given that she was over 37 weeks decision was made to induce her. She was also thought to be in early labor as she was having contractions every 2 to 3 minutes that were painful. Once decision was made to keep patient she desired an epidural and this was placed and once the epidural was completed her contractions spaced out to every 5-8 minutes. She did receive 1 dose of labetalol for consistent blood pressures in the severe range which was thought to be because of pain. After total of 6 to 7 hours from initial admission she made no further cervical change and decision was made to start induction with Cytotec. For Cytotec was placed at midnight and the second 1 at 4 AM and with this she made some cervical change to 5 to 6 cm, 40% effaced and -3 station. Artificial rupture of membranes was performed at 8:20 AM on 09/26/2020 with clear fluids at which time she was noted to be 5 to 6 cm 40% effaced and -3 station. She started to make cervical change after this and was 8 cm at 10:54 AM and fully dilated at 11:30 AM. Since induction started she did not have any blood pressures in the severe range and did not require any further IV blood pressure medication. tracing was category 1 and she was +2 station and set up in lithotomy position ready to push. DELIVERY NOTE: She was set up in lithotomy position and was pushing effectively. She was noted to be +3 station and continued pushing well. The head delivered in JACOB position, nuchal cord x1 was present but was unable to be reduced. The shoulders and rest of the body followed with her next push and delivered through the cords without any difficulty. The baby's mouth and nose were suctioned and the baby was placed on the mother's belly. Once cord pulsations stopped the cord was clamped and cut. The placenta delivered spontaneously intact with membranes and was discarded. The fundus was noted to be firm and well contracted. The vagina and cervix were inspected and no cervical or sulcal lacerations were noted. She had a first-degree vaginal laceration at about 5:00 location which was repaired with 3-0 Vicryl on an SH in a continuous interlocking fashion. Good hemostasis and reapproximation was obtained. Baby girlIfeoma born at 11:59 AM on 09/26/2020 with 8/9, weighing 6 pounds 10 ounces, 3010 g, 19 inches long. Placenta was delivered spontaneously intact with membranes at 12:02 PM. Cotyledons were intact , centrally inserted umbilical cord with 3 vessels noted. Estimated blood loss 200 mL. Complications-none, both baby and mother were left to recover in a stable condition HOSPITAL COURSE: She underwent an uncomplicated vaginal delivery on 09/26/2020. She did well on day 0 and was ambulating well, tolerating regular diet, voiding freely, passing flatus. She was breast-feeding without difficulty and bonding well with her daughter. Pain was well-controlled with by mouth pain medication. She denied nausea, vomiting, fever, chills, shortness of breath, leg pain. She had moderate vaginal bleeding. On day # 1 she continued to do well with stable vital signs and stable hemoglobin at 10.3. Blood pressures are within normal range and she did not have any further elevated blood pressures after delivery and withdrawal requiring medication.. She was discharged home on day 1 in a stable condition, as she desired early discharge. Warning signs for endometritis, mastitis, DVT/PE were reviewed with her. Post delivery activity restrictions were also reviewed with her at all her questions were answered to her satisfaction. She plans on using control pills for contraception and we will prescribe this for her at her 6-week visit EXAM AT DISCHARGE: Gen.: No acute distress Heart: S1-S2 heard, regular rate and rhythm Lungs: Clear to auscultation bilaterally Abdomen: Soft, fundus firm below umbilicus, Legs: No calf tenderness, + 1 bilateral pitting pedal edema pedal edema. CONDITION AT DISCHARGE: Stable This documentation was created by Interlude semiconductor lab technician software (known for inherent semiconductor lab technician error). Every effort was made to assure accuracy of semiconductor lab technician. Any obvious errors or omissions should be clarified with the author of the document. Reason for Visit Reason for Visit: contractions Information Peripartum Data: Infant Delivery Method: Vaginal Physical Exam Urinary Catheter Management^: Moody Latex: Cath Placed During This Visit: yes, but has since been removed by the nurse Reason for Continuing Indwelling Catheter: Decision to DC Catheter Urinary Catheter Date of Insertion: 09/25/20 Urinary Catheter Time of Insertion: 23:00 Date Urinary Catheter Removed: 09/26/20 Time Urinary Catheter Discontinued: 11:42 Discharge Data Data Completed and Pending: Labs from last 24 hours 09/27/20 01:35 WBC 11.3 H RBC 3.79 L Hgb 10.3 L Hct 31.7 L MCV 83.6 MCH 27.2 L MCHC 32.5 RDW 13.7 Plt Count 185 MPV 10.5 H Vitals: Last Vital Signs Temp 96.6 F L 09/27/20 06:16 Pulse 82 09/27/20 06:17 Resp 18 09/27/20 06:30 BP 129/60 09/27/20 06:17 Pulse Ox 98 09/26/20 00:01 Discharge Plan Discharge Patient Disposition: Home Condition: Stable Prescriptions: New ibuprofen 800 mg tablet 800 mg PO Q8H Qty: 30 RF: 0 docusate sodium 100 mg Capsule 100 mg PO BID PRN (Reason: constipation) Qty: 30 RF: 0 Continued prenat.vits,heber,noo-axfg-yqsic Tablet 1 tab PO DAILY RF: 0 Discontinued aspirin [Adult Aspirin Regimen] 81 mg tablet,delayed release (DR/EC) 162 mg PO DAILY RF: 0 Discharge Orders: Discharge Order (Routine); Ordered 09/27/20 Ordered By: Michael Barbour Referrals: Michael Barbour MD [Physician] - (1 week blood pressure check and 6-week visit with Dr. Benjamin) Discharge Diet: Usual diet Patient Instructions: Opioid Safety Activity Restrictions/Additional Instructions: 1 week blood pressure check and 6-week visit with Dr. Benjamin Pelvic rest for 6 weeks, no heavy lifting for 6 weeks Discharge Attestations ACADEMIC DEAN Time Spent in Discharge Care*: greater than 30 min Coding Level of Care Code Acute Dry Roaster for Traci Alexander
[2020-09-27] MEDS: prenatal vitamin Capsule 1 CAP PO (09:32)
[2020-09-27] MEDS: docusate sodium 100 mg Capsule PO (09:32)
[2020-09-27] MEDS: ibuprofen 800 mg tablet PO (09:32)
== END 2020-09-27 13:50 | disposition home or self-care (01) | DRG 807 ==
LOC: OPOB 21:55 → OBGYN 09-26 05:00
PROVIDERS: Admitting Provider Obstetrics & Gynecology; PCP Physician Assistant Medical; Visit Provider Obstetrics & Gynecology
DX: O13.4 Gestational [pregnancy-induced] hypertension without significant proteinuria, complicating childbirth (principal); Z37.0 Single live birth; O69.2XX0 Labor and delivery complicated by other cord entanglement, with compression, not applicable or unspecified; O70.0 First degree perineal laceration during delivery; Z3A.38 38 weeks gestation of pregnancy
CPT/HCPCS: 36415; 51702; 59025; 59409; 80053; 81001; 82570; 83986; 84156; 84315; 84550; 85025; 85027; 98960; 99211; J2795; J3490

== ENCOUNTER → 2020-11-07 11:00 | Outpatient (BNVA) | payer BC, MEDICAID, SELFPAY | PROVIDERS: PCP Physician Assistant Medical; Visit Provider Obstetrics & Gynecology | DX: Z12.4 Encounter for screening for malignant neoplasm of cervix (principal) | CPT/HCPCS: 88175 ==

== ENCOUNTER → 2023-02-18 14:26 | Outpatient (BNVA) | payer OTHER, MEDICAID, SELFPAY | PROVIDERS: PCP Physician Assistant Medical; Visit Provider Family Medicine | DX: Z34.90 Encounter for supervision of normal pregnancy, unspecified, unspecified trimester (principal); R30.0 Dysuria; Z3A.00 Weeks of gestation of pregnancy not specified | CPT/HCPCS: 80307; 81000; 81025; 84144; 84443; 84702; 85025; 86592; 86762; 86803; 86850; 86900; 87086; 87340; 87491; 87591; 87624; 87806 ==

== ENCOUNTER 2023-02-28 08:06 | Outpatient (CLI) | payer OTHER, MEDICAID, SELFPAY ==
--- NOTE | 2023-02-28 08:30 | US_ITS ---
WS: [id number] EARLY OBSTETRICAL ULTRASOUND (<14 WEEKS). HISTORY: Dating US - In next 1-2 weeks if possible COMPARISON: None available. Single intrauterine gestational sac is identified. Cardiac activity at 171 BPM. [place]-rump length linda sures 1.9 cm which corresponds to a gestation of 8w3d. Normal-appearing yolk sac and amnion demonstra virgliio. No subchorionic hemorrhage. No free fluid. RIGHT ovarian cyst measures 3.8 x 2.7 x 3.3 cm. No solid component. No septations. IMPRESSION: 1. Single intrauterine gestation of 8 weeks 3 days with an EDC of 10/07/2023. 2. Normal cardiac activity. 3. RIGHT ovarian cyst.
== END 2023-02-28 08:07 | disposition home or self-care (01) ==
LOC: RAD 08:06
PROVIDERS: PCP Physician Assistant Medical; Visit Provider Family Medicine
DX: O34.81 Maternal care for other abnormalities of pelvic organs, first trimester (principal); N83.201 Unspecified ovarian cyst, right side; Z3A.08 8 weeks gestation of pregnancy
CPT/HCPCS: 76801; 76817

== ENCOUNTER → 2023-03-05 16:03 | Outpatient (BNVA) | payer OTHER, MEDICAID, SELFPAY | PROVIDERS: PCP Family Medicine; Visit Provider Family Medicine | DX: Z34.80 Encounter for supervision of other normal pregnancy, unspecified trimester (principal); Z3A.00 Weeks of gestation of pregnancy not specified | CPT/HCPCS: 84144 ==

== ENCOUNTER → 2023-03-21 11:00 | Outpatient (BNVA) | payer OTHER, MEDICAID, SELFPAY | PROVIDERS: PCP Family Medicine; Visit Provider Family Medicine | DX: O09.299 Supervision of pregnancy with other poor reproductive or obstetric history, unspecified trimester (principal); Z3A.00 Weeks of gestation of pregnancy not specified | CPT/HCPCS: 82570; 84156 ==

== ENCOUNTER → 2023-04-04 12:57 | Outpatient (BNVA) | payer OTHER, MEDICAID, SELFPAY | PROVIDERS: PCP Family Medicine; Visit Provider Family Medicine | DX: O09.299 Supervision of pregnancy with other poor reproductive or obstetric history, unspecified trimester (principal); Z3A.00 Weeks of gestation of pregnancy not specified | CPT/HCPCS: 84156; 87491; 87591 ==

== ENCOUNTER 2023-05-12 16:47 | Outpatient (CLI) | payer OTHER, MEDICAID, SELFPAY ==
--- NOTE | 2023-05-12 17:00 | USR_ITS ---
PROCEDURE INFORMATION: Exam: US After First Trimester, Transabdominal Exam date and time: 05/12/2023 4:59 PM Age: 27 years old Clinical indication: Screening exam; Routine US, uterus; Additional info: Anatomy US - 7-8 weeks from now LABS AND CLINICAL REPORTS: Last menstrual period start date: 12/31/2022 Gestational age (Established): 18 w 6 d Estimated due date (Established): 10/07/2023 TECHNIQUE: Imaging protocol: Real-time transabdominal obstetrical ultrasound of the maternal pelvis and a second or third trimester with image documentation. COMPARISON: US OB <=14 wk fetus w transvag 02/28/2023 8:25 AM FINDINGS: Gestation: Single live intrauterine gestation. heart rate: 138 bpm presentation: Breech lie Placenta: Unremarkable. No subchorionic bleed. Placenta is location. Amniotic fluid: Amniotic fluid is normal for gestational age. Amniotic fluid index: LINA is 9.29 cm. ANATOMY: Facial profile: facial profile is normal. midline falx: midline falx is normal. cerebellum: cerebellum is normal. lateral ventricles: lateral ventricles are normal. cisterna magna: cisterna magna is normal. choroid plexus: choroid plexus is normal. upper lip and nose: upper lip and nose are normal. situs: situs is normal. heart four-chamber view, heart size and position: heart four-chamber view, size, and position are normal. three-vessel view: three-vessel view is normal. right ventricular outflow tract: right ventricular outflow tract is normal. left ventricular outflow tract: left ventricular outflow tract is normal. kidneys: kidneys are normal. stomach: stomach is normal. urinary bladder: bladder is normal. spine: No visualized abnormalities of spine. Umbilical cord insertion site into the abdomen: umbilical cord insertion site into the abdomen is normal. Umbilical cord vessel number: 3-vessel umbilical cord extremities: No visualized abnormalities of arms/hands. No visualized abnormalities of legs/feet. external genitalia: No visualized abnormalities BIOMETRY: Gestational age (AUA): 18 w 5 d Estimated due date (AUA): 10/08/2023 Estimated weight: 256 g Biparietal diameter (BPD): 4.13 cm. EGA (BPD) is 18 w 4 d Head circumference (HC): 15.46 cm. EGA (HC) is 18 w 3 d Abdominal circumference (AC): 13.15 cm. EGA (AC) is 18 w 5 d Femur length (FL): 2.91 cm. EGA (FL) is 19 w 0 d Cephalic Index (CI): 78.8 % HC/AC: 1.18 FL/HC: 18.8 % FL/AC: 22.1 % MATERNAL: Uterus: Intrauterine gestation. Cervix: Cervix is closed. Cervical length measures 4.1 cm. Right ovary/adnexa: Obscured by lack of adequate acoustic window. Left ovary/adnexa: Obscured by lack of adequate acoustic window. Intraperitoneal space: No intraperitoneal free fluid. US/US OB >= 14 weeks fetus [id number] IMPRESSION: Normal anatomic survey.
== END 2023-05-12 16:48 | disposition home or self-care (01) ==
PROVIDERS: PCP Family Medicine; Visit Provider Family Medicine
DX: Z34.80 Encounter for supervision of other normal pregnancy, unspecified trimester (principal)
CPT/HCPCS: 76805

== ENCOUNTER → 2023-06-20 10:15 | Outpatient (BNVA) | payer OTHER, MEDICAID, SELFPAY | PROVIDERS: PCP Family Medicine; Visit Provider Family Medicine | DX: Z34.81 Encounter for supervision of other normal pregnancy, first trimester (principal); Z3A.00 Weeks of gestation of pregnancy not specified | CPT/HCPCS: 82950 ==

== ENCOUNTER → 2023-07-18 10:13 | Outpatient (BNVA) | payer OTHER, MEDICAID, SELFPAY | PROVIDERS: PCP Family Medicine; Visit Provider Family Medicine | DX: O09.299 Supervision of pregnancy with other poor reproductive or obstetric history, unspecified trimester (principal); R03.0 Elevated blood-pressure reading, without diagnosis of hypertension; Z51.81 Encounter for therapeutic drug level monitoring; Z3A.00 Weeks of gestation of pregnancy not specified | CPT/HCPCS: 80053; 82570; 84156; 84550; 85025 ==

== ENCOUNTER → 2023-08-18 10:14 | Outpatient (BNVA) | payer OTHER, SELFPAY | PROVIDERS: PCP Family Medicine; Visit Provider Family Medicine | DX: Z34.81 Encounter for supervision of other normal pregnancy, first trimester (principal); R03.0 Elevated blood-pressure reading, without diagnosis of hypertension | CPT/HCPCS: 82570; 84156 ==

== ENCOUNTER 2023-08-21 15:39 | Outpatient (CLI) | payer OTHER, SELFPAY ==
--- NOTE | 2023-08-21 16:00 | US_ITS ---
WS: [id number] BIOPHYSICAL PROFILE AND LIMITED OB. HISTORY: LINA/BPP in next week if possible - measuring SGA COMPARISON: 02/28/2023, 05/12/2023 Presentation: Vertex. Cervix: Closed and normal length. Placenta: Anterior, no previa or abruption. Grade: 1 HEART: FHR of 150BPM. measurements: BPD = 7.9 cm = 31w4d; 6.4 percentile HC = 29.4 cm = 32w3d; 4.9 percentile AC = 25.7 cm = 29w6d; less than the 3rd percentile FL = 6.3 cm = 32w4d; 22.6 percentile LINA: 8.1 cm EFW: 1711.3g; 3.5 percentile AGA by ultrasound: 31 weeks 4 days JESSIKA by ultrasound: 10/19/2023 Fetus is measuring approximately 9 days smaller than predicted by the first trimester ultrasound. Bio metry indicates restricted growth pattern. Biophysical profile: Parameters are as follows: Breathin Movement: 2 Tone: 2 Fluid volume: 2 US/US OB lmt w/ BPP wo NST IMPRESSION: 1. Biophysical profile score: 8/8. 2. Single intrauterine gestation of 31 weeks 4 days with an EDC of 10/19/2023. 3. Abdominal circumference less than the 3rd percentile and the estimated weight at the 3.5th percentile. These findings are consistent with growt h restriction. 4. Amniotic fluid volume is normal but low normal. 5. Placenta anterior, grade 1.
== END 2023-08-21 15:40 | disposition home or self-care (01) ==
LOC: RAD 15:39
PROVIDERS: PCP Family Medicine; Visit Provider Family Medicine
DX: O09.299 Supervision of pregnancy with other poor reproductive or obstetric history, unspecified trimester (principal); O36.5930 Maternal care for other known or suspected poor fetal growth, third trimester, not applicable or unspecified
CPT/HCPCS: 76815; 76819

== ENCOUNTER → 2023-08-26 16:00 | Outpatient (BNVA) | payer OTHER, SELFPAY | PROVIDERS: PCP Family Medicine; Visit Provider Family Medicine | DX: Z34.81 Encounter for supervision of other normal pregnancy, first trimester (principal); Z51.81 Encounter for therapeutic drug level monitoring; R03.0 Elevated blood-pressure reading, without diagnosis of hypertension; O13.9 Gestational [pregnancy-induced] hypertension without significant proteinuria, unspecified trimester; Z3A.00 Weeks of gestation of pregnancy not specified | CPT/HCPCS: 80053; 84550 ==

== ENCOUNTER 2023-08-28 15:22 | Outpatient (CLI) | payer OTHER, SELFPAY ==
[2023-08-28] VITALS (48 sets, daily range): BP systolic 135–203; BP diastolic 73–118; PULSE 72–103; RESP 16; TEMP 36.6; O2SAT 99–100; BMI 34.4
--- NOTE | 2023-08-28 15:47 | USR_ITS ---
PROCEDURE INFORMATION: Exam: US Biophysical Profile Without Non-Stress Test Exam date and time: 08/28/2023 4:08 PM Age: 28 years old Clinical indication: Other: HTN; ; Additional info: Hypertension TECHNIQUE: Imaging protocol: US biophysical profile without non-stress testing. COMPARISON: US OB lmt w/ BPP wo NST 08/21/2023 3:45 PM FINDINGS: Single viable IUP in cephalic presentation. heart rate is 150 bpm. Placenta is located anterior. Amniotic fluid volume is normal. LINA measures 8.3 cm. Gestational age is 31 weeks 6 days with an JESSIKA of 10/24/2023. anatomy: No gross abnormality noted. The following measurements were obtained: BPD 8 cm 32 weeks 1 day 4th percentile HC 29.6 cm 32 weeks 5 days 3rd percentile AC 25.2 cm 29 weeks 3 days 3rd percentile FL 6.4 cm 32 weeks 6 days 10th percentile EFW 1691 grams 3rd percentile Biophysical profile measures 8/8. Doppler evaluation of the umbilical cord demonstrates S/D ratios between 4.1 and 4.8. Resistive indices are noted between 0.75 and 0.79. US/US OB lm w fetalBPP woNST &umb Impression: Viable IUP at 31 weeks 6 days. measurements all show low percentile suggesting IUGR.
[2023-08-28] MEDS: labetalol 5 mg/mL SDV 20mL 20 MG IVP (17:02)
[2023-08-28] MEDS: labetalol 5 mg/mL SDV 20mL 40 MG IVP (17:27)
[2023-08-28 17:32] LABS: Basophils # 0.1 10^3/uL (0.0-0.1); Basophils % 0.5 %; Eosinophils # 0.3 10^3/uL (0.0-0.8); Eosinophils % 2.7 %; Hematocrit 37.6 % (36-47); Lymphocytes # 2.2 10^3/uL (0.8-4.8); Lymphocytes % 24.2 %; Mean Corpuscular Hemoglobin 28.1 pg (27-33); Mean Corpuscular Volume 85.3 fl (85-98); Mean Platelet Volume 12.3 fL (7.4-10.4); Monocytes # 0.8 10^3/uL (0.2-0.9); Monocytes % 8.2 %; Neutrophils # 5.85 10^3/uL (1.8-7.7); Neutrophils % 63.7 %; Nucleated Red Blood Cells % 0 %; Platelet Count 169 10^3/cmm (157-399); Red Blood Count 4.41 10^6/uL (3.85-5.65); Red Cell Distribution Width 13.1 % (12.1-15.1); White Blood Count 9.18 10^3/uL (3.29-11.43)
[2023-08-28 17:38] LABS: Alanine Aminotransferase 10 U/L (0-33); Albumin Level 3.7 g/dL (3.5-5.2); Alkaline Phosphatase 137 U/L (35-105); Anion Gap 14.1 (5-19); Aspartate Amino Transferase 9 U/L (0-32); Blood Urea Nitrogen 7 mg/dL (6-20); Calcium 8.7 mg/dL (8.5-10.5); Carbon Dioxide 23 mmol/L (22-29); Chloride 107 mmol/L (98-107); Globulin 2.9 g/dL (1.3-4.6); Glomerular Filtration Rate 187.4 mL/min (90-130); Glucose 81 mg/dL (65-115); Osmolality Calculated 287 mOsm/kg (285-295); Potassium 4.1 mmol/L (3.5-5.1); Sodium 140 mmol/L (136-145); Total Bilirubin 0.2 mg/dL (0.15-1.2); Total Protein 6.6 g/dL (6.6-8.7); Uric Acid 5.7 mg/dL (2.4-5.7)
[2023-08-28 17:55] LABS: Urine Creatinine 17 mg/dL (28-217); Urine Protein Random 6 mg/dL
[2023-08-28] MEDS: labetalol 5 mg/mL SDV 20mL 80 MG IVP (17:56)
[2023-08-28 17:57] LABS: UPRO/UCREAT Ratio 0.35 mg/mg CR
--- NOTE | 2023-08-28 18:14 | P.TS_ITS ---
Transfer Summary Providers Date of Admission: 08/28/2023 Date of Discharge/Transfer: 08/28/23 Attending Provider at Admission: Mike Lazo MD Attending Provider at Transfer: Mike Lazo MD Primary Care Provider: Mike Lazo MD Transfer Plans: Anticipated date of transfer: 08/28/23 . Diagnoses at Discharge Other Information Additional DC diagnoses/information: 1. Intrauterine at 34.2 weeks gestation with JESSIKA of 10/07/2023 2. Gestational hypertension with severe features 3. Measuring small for gestational age 4. Elevated SD ratio and resistive index on ultrasound done on 08/28/2023. 5. History of preeclampsia 6. History of spinal headache Reason for Visit Reason for Visit NST - Hypertension, Small for GA Brief History: Ghazala is a 28 y/o @ 34.2 wks with JESSIKA of 10/07/2023 by 8 wk US consistent with estimated LMP. Preg c/b gestational hypertension with severe features, measuring small for gestational age, elevated resistive index and SD ratio, h/o preeclampsia, h/o spinal headache. The patient's BP started to increase earlier in the week and she was set up for NSTs and further monitoring. During her NST, she was found to have a blood pressure of 202/115. Repeat blood pressure was 195/100. Her blood pressures continue to be elevated. She was given IV labetalol 20 mg, then 40 mg, then 80 mg and her blood pressures continue to be in the 200 systolic range. Her NST showed a reactive tracing with category 1 tracing. Biophysical profile was 8 out of 8. SD ratio was 4.1-4.8 of the umbilical artery. Resistive index was 0.75-0.79. Estimated weight was 1691 g and placing the infant in the 3rd percentile. LINA was 8.3. The patient is not having any symptoms related to her blood pressures. She denies headache, chest pain, shortness of breath, nausea, flashes of light, dyspnea. Hospital Course Hospital Course The patient's blood pressure continued to be in the severe range despite being on bedrest and despite using IV medications over a 2-hour period. For this reason it was felt best to transfer her to a higher level of care as she is showing signs of gestational hypertension with severe features and if she needs to be delivered, she would need to have NICU availability. We do not have a NICU at our facility. I called and spoke with Dr. Dean who recommended that the patient be started on IV magnesium. She will receive a 4 g bolus and continue on 2 g/h. She will be given 1 dose of betamethasone 12 mg IM. Prior to transfer, the patient was given a dose of hydralazine 5 mg IV. With this her blood pressure decreased down to 167/108. Dr. Dean agreed to accept the patient in transfer. We appreciate this his and the rest of [facility]'s expertise and care for this patient. Consider with the patient's short stay summary. Physical Exam Narrative: General: Alert and oriented x3 Eyes: Pupils equal round and reactive to light and accommodation Mouth: Mucous membranes moist, pharynx non-erythematous Cardiac: Regular rate and rhythm without murmurs Lungs: Clear to auscultation bilaterally without wheezes, crackles or rhonchi Abdomen: Soft, non-tender, fundus consistent with gestational age Extremities: +1 edema in the bilateral lower extremities, brisk DTR's in the bilateral lower extremities TS Data Studies Completed and Pending Pending at discharge Category Date Time Status Magnesium Level (OB Only) Q6 Lab 08/28/23 23:54 Uncollected Magnesium Level (OB Only) Q Lab 08/29/23 05:54 Uncollected Magnesium Level (OB Only) [facility] Lab 08/29/23 11:54 Uncollected Magnesium Level (OB Only) [facility] Lab 08/29/23 17:54 Uncollected Magnesium Level (OB Only) [facility] Lab 08/29/23 23:54 Uncollected Magnesium Level (OB Only) Q Lab 08/30/23 05:54 Uncollected Magnesium Level (OB Only) Q Lab 08/30/23 11:54 Uncollected Magnesium Level (OB Only) Q Lab 08/30/23 17:54 Uncollected Magnesium Level (OB Only) Q Lab 08/30/23 23:54 Uncollected Magnesium Level (OB Only) Q Lab 08/31/23 05:54 Uncollected Magnesium Level (OB Only) Q Lab 08/31/23 11:54 Uncollected Magnesium Level (OB Only) Q Lab 08/31/23 17:54 Uncollected Magnesium Level (OB Only) Q Lab 08/31/23 23:54 Uncollected Completed Studies During Hospitalization Category Date Time Status US OB limit w BPP wo NST w umbilical art [US OB lm w Ultrasound 08/28/23 15:47 Completed fetalBPP woNST &umb] Stat Laboratory Last Values WBC 9.18 10^3/uL (3.29-11.43) 08/28/23 16:50 RBC 4.41 10^6/uL (3.85-5.65) 08/28/23 16:50 Hgb 12.40 g/dL (11.27-16.99) 08/28/23 16:50 Hct 37.6 % (36-47) 08/28/23 16:50 MCV 85.3 fl (85-98) 08/28/23 16:50 MCH 28.1 pg (27-33) 08/28/23 16:50 MCHC 33.0 g/dL (30-55) 08/28/23 16:50 RDW 13.1 % (12.1-15.1) 08/28/23 16:50 Plt Count 169 10^3/cmm (157-399) 08/28/23 16:50 MPV 12.3 fL (7.4-10.4) H 08/28/23 16:50 Neut % (Auto) 63.7 % 08/28/23 16:50 Lymph % (Auto) 24.2 % 08/28/23 16:50 [place] % (Auto) 8.2 % 08/28/23 16:50 Eos % (Auto) 2.7 % 08/28/23 16:50 Baso % (Auto) 0.5 % 08/28/23 16:50 Neut # (Auto) 5.85 10^3/uL (1.8-7.7) 08/28/23 16:50 Lymph # (Auto) 2.2 10^3/uL (0.8-4.8) 08/28/23 16:50 [place] # (Auto) 0.8 10^3/uL (0.2-0.9) 08/28/23 16:50 Eos # (Auto) 0.3 10^3/uL (0.0-0.8) 08/28/23 16:50 Baso # (Auto) 0.1 10^3/uL (0.0-0.1) 08/28/23 16:50 Nucleated RBC % (auto) 0 % 08/28/23 16:50 Nucleated RBCs # 0.0 /100WBC 08/28/23 16:50 Sodium 140 mmol/L (136-145) 08/28/23 16:50 Potassium 4.1 mmol/L (3.5-5.1) 08/28/23 16:50 Chloride 107 mmol/L (98-107) 08/28/23 16:50 Carbon Dioxide 23 mmol/L (22-29) 08/28/23 16:50 Anion Gap 14.1 (5-19) 08/28/23 16:50 BUN 7 mg/dL (6-20) 08/28/23 16:50 Creatinine 0.4 mg/dL (0.5-0.9) L 08/28/23 16:50 GFR Calculation 187.4 mL/min (90-130) H 08/28/23 16:50 Glucose 81 mg/dL (65-115) 08/28/23 16:50 Calculated Osmolality 287 mOsm/kg (285-295) 08/28/23 16:50 Uric Acid 5.7 mg/dL (2.4-5.7) 08/28/23 16:50 Calcium 8.7 mg/dL (8.5-10.5) 08/28/23 16:50 Total Bilirubin 0.2 mg/dL (0.15-1.2) 08/28/23 16:50 AST 9 U/L (0-32) 08/28/23 16:50 ALT 10 U/L (0-33) 08/28/23 16:50 Alkaline Phosphatase 137 U/L (35-105) H 08/28/23 16:50 Total Protein 6.6 g/dL (6.6-8.7) 08/28/23 16:50 Albumin 3.7 g/dL (3.5-5.2) 08/28/23 16:50 Globulin 2.9 g/dL (1.3-4.6) 08/28/23 16:50 U Random Total Protein 6 mg/dL 08/28/23 16:44 Urine Creatinine 17 mg/dL (28-217) L 08/28/23 16:44 Protein/Creatinin Ratio 0.35 mg/mg CR 08/28/23 16:44 Radiology Impressions Obstetrics US/Biophysical Profile 08/28/23 15:47 Impression: Viable IUP at 31 weeks 6 days. measurements all show low percentile suggesting IUGR. Recent Clincial Data Last Vital Signs Pulse 82 08/28/23 18:13 BP 167/108 08/28/23 18:13 Vital Signs Pulse BP 08/28/23 18:13 82 08/28/23 18:13 167/108 08/28/23 18:03 80 08/28/23 18:03 182/109 08/28/23 17:53 72 08/28/23 17:53 184/104 08/28/23 17:43 82 08/28/23 17:43 203/118 08/28/23 17:33 90 08/28/23 17:33 194/115 08/28/23 17:23 87 08/28/23 17:23 183/105 08/28/23 17:13 84 08/28/23 17:13 184/105 08/28/23 17:02 83 08/28/23 17:02 201/116 08/28/23 16:24 98 08/28/23 16:24 186/101 08/28/23 16:09 83 08/28/23 16:09 187/96 08/28/23 15:54 83 08/28/23 15:54 188/98 08/28/23 15:39 91 195/100 08/28/23 15:31 96 202/115 Intake & Output/Weight 08/26/23 08/27/23 08/28/23 08/29/23 06:59 06:59 06:59 06:59 Weight 182 lb Vitals Last Vital Signs Pulse 82 08/28/23 18:13 BP 167/108 08/28/23 18:13 TS Medications Medications Calcium Gluconate (Calcium Gluconate 0.1 Gm/Ml 10% Sdv 10ml) 1 gm IVP ONCE PRN PRN Reason: Reversal of Magnesium Sulfate Hydralazine HCl (Hydralazine 20 Mg/Ml Inj 1 Ml) 20 mg IVP PRN PRN; Protocol PRN Reason: HYPERTENSION Hydralazine HCl (Hydralazine 20 Mg/Ml Inj 1 Ml) 10 mg IVP PRN PRN; Protocol PRN Reason: HYPERTENSION Hydralazine HCl (Hydralazine 20 Mg/Ml Inj 1 Ml) 5 mg IVP PRN PRN; Protocol PRN Reason: HYPERTENSION Magnesium Sulfate (Magnesium Sulfate Premix) 20 gm in 500 mls @ 50 mls/hr IV .Q10H ALYSSA Dextrose/Lactated Ringer's (Dextrose 5%-Lactated Ringers) 1,000 mls @ 125 mls/hr IV .Q8H ALYSSA Magnesium Sulfate (Magnesium Sulfate Premix) 4 gm in 100 mls @ 300 mls/hr IV ONCE ONE Stop: 08/28/23 18:21 Labetalol HCl (Labetalol 5 Mg/Ml Sdv 20ml) 20 mg IVP PRN PRN; Protocol PRN Reason: HYPERTENSION Last Admin: 08/28/23 17:02 Dose: 20 mg Labetalol HCl (Labetalol 5 Mg/Ml Sdv 20ml) 40 mg IVP PRN PRN; Protocol PRN Reason: HYPERTENSION Last Admin: 08/28/23 17:27 Dose: 40 mg Labetalol HCl (Labetalol 5 Mg/Ml Sdv 20ml) 80 mg IVP PRN PRN; Protocol PRN Reason: HYPERTENSION Last Admin: 08/28/23 17:56 Dose: 80 mg Labetalol HCl (Labetalol 5 Mg/Ml Sdv 20ml) 40 mg IVP PRN PRN; Protocol PRN Reason: HYPERTENSION Discontinued Medications Betamethasone Acet/Betameth SodPhos (Betamethasone Susp 6 Mg/Ml 1 Ml (Per Ml)) 12 mg IM ONCE ONE Stop: 08/28/23 18:03 Allergies diphenhydramine Adverse Reaction (Verified 11/29/22 09:07) Nausea/stomach cramps Home Medications prenat.vits,heber,lip-ekmx-yryqt tab PO 02/18/23 [History Confirmed 08/26/23] labetalol 100 mg tablet 50 mg (1/2 x 100 mg) PO BID #30 tabs 08/26/23 [Rx Confirmed 08/26/23] Discharge Plan Discharge Patient Disposition: Xfer Other Prescriptions: No Action prenat.vits,heber,[id number] Tablet PO labetalol 100 mg tablet 50 mg PO BID Qty: 30 3RF Transfer Attestations Time Spent in Transfer Care: other (60) Quality Metrics Clinical Quality Measures [ No reported AMI, CVA or VTE this stay] Coding Level of Care Code Acute Code for Chg Fwd
[2023-08-28] MEDS: hyDRALAzine 20 mg/mL INJ 1 mL 5 MG IVP (18:16)
[2023-08-28] MEDS: betamethasone susp 6 mg/mL 1 mL (per mL) 12 MG IM (18:22)
[2023-08-28] MEDS: magnesium sulfate premix 4 GM/100 ML PREMIX IV (18:35)
[2023-08-28] MEDS: dextrose 5%-lactated ringers 1,000 ML 125 ML IV (18:35)
[2023-08-28] MEDS: hyDRALAzine 20 mg/mL INJ 1 mL 10 MG IVP (18:45)
[2023-08-28] MEDS: magnesium sulfate premix 20 GM/500 ML BAG IV (18:59)
--- NOTE | 2023-08-28 19:23 | PC.NURSE ---
Report called to [facility], spoke to Tammy Johnson RN. [facility] called for transport.
--- NOTE | 2023-08-28 21:05 | PC.NURSE ---
etienne rabago present on floor for transfer. report given and pt care turned over at [id number]
--- NOTE | 2023-08-28 21:40 | PC.NURSE ---
belongings taken by family. pt transferred
== END 2023-08-28 21:05 | disposition other institution (70) ==
LOC: OPOB 15:27 → OBGYN 15:30
PROVIDERS: PCP Family Medicine; Visit Provider Family Medicine
DX: O13.3 Gestational [pregnancy-induced] hypertension without significant proteinuria, third trimester (principal); Z3A.34 34 weeks gestation of pregnancy; O36.5930 Maternal care for other known or suspected poor fetal growth, third trimester, not applicable or unspecified
CPT/HCPCS: 36415; 51702; 59025; 76815; 76819; 76820; 80053; 82570; 84156; 84550; 85025; 96372; 96374; 96376; 99211; J0360; J0702; J3475; J3490; J7121